=== PATIENT | male | born 1955 | race Caucasian/White ===

== ENCOUNTER 2019-01-18 10:51 | Emergency (ER) ==
[~2019-01-18] VITALS: Ht 182.9 cm; Wt 95.3 kg
--- NOTE | 2019-01-18 11:15 | NUR ---
PT WALKED INTO EMERGENCY ROOM WITH C/C PT C/O R ELBOW SWELLING UPON WAKING UP THIS AM, - PAIN PT ACCOMPANIED BY FAMILY ALERT WITH ORIENTATION X 4
[2019-01-18 12:50] VITALS: BP 154/103
== END 2019-01-18 12:55 | disposition home or self-care (01) ==
LOC: ER 10:51
DX: M70.21 Olecranon bursitis, right elbow (principal); I10 Essential (primary) hypertension; Y93.01 Activity, walking, marching and hiking
CPT/HCPCS: 73080-TC